=== PATIENT | male | born 1960 | race Caucasian/White ===

== ENCOUNTER → 2016-12-14 | Outpatient (CLI) | payer OTHER ==
--- NOTE | ~2016-12-14 | MR2 ---
[facility] A Service of [facility] RADIOLOGY TEXT RESULTS PATIENT: ABHIJIT DONALD LOCATION: [facility] : 56 UNIT #: [id number] AGE: [address]: Isabelle Love MD SEX: M ORDER DR: [id number] [place] [id number] O MR#: [id number] Acc #: [id number] NAME: ABHIJIT DONALD : 1960 SEX: M STUDY DATE/TIME: 12/14/2016 12:09 UNIT: [facility] ROOM: STUDY DESCRIPTION: MR Abdomen WWo Cont Attending Physician: Isabelle Love M.D. Referring Physician: Isabelle Love M.D. Ordering Physician: Isabelle Love M.D. Primary Care Physician: Matt Teran M.D. MRI CENTER REPORT This report is preliminary unless electronic signature is present. EXAM MRI abdomen with and without contrast, adrenal protocol INDICATIONS Indeterminate right adrenal lesion on previous CT. TECHNIQUE Multiplanar, multisequence MR imaging of the abdomen prior to and following 18 mL of MultiHance. Study was performed per adrenal protocol. COMPARISON CT lung cancer screening from 11/27/2016. FINDINGS ABDOMEN WITHOUT CONTRAST: There is a 2.8 cm right adrenal cyst. No other adrenal nodule. Study is not tailored for complete evaluation of the other abdominal organs. Visualized portions of the liver, spleen and included bowel loops are unremarkable. There are a few small cysts in both kidneys. There is complete fatty replacement of the pancreas. Previous cholecystectomy with [id number]-[id number]-moyadtdn prominence of the common duct, but no evidence for obstructing mass or stone on this study. ABDOMEN WITH CONTRAST: The right adrenal cyst shows no internal enhancement. There is no abnormal enhancement elsewhere in the abdomen. IMPRESSION 1. 2.8 cm benign right renal cyst. 2. Other incidental findings are detailed above. [facility] A Service [facility] RADIOLOGY TEXT RESULTS PAT[facility]: [facility]HIJIT DONALD [id number] 56 UNIT #: [id number] AGE: [address]: Isabelle Love MD SEX: M ORDER DR: Dictated by... Aden Gordon M.D. THIS IS AN ELECTRONICALLY VERIFIED REPORT Aden Gordon M.D. at 12/16/2016 2:31 PM EED/pcl TD: 12/15/2016 16:21 JOB #: [id number] MRI CENTER REPORT Page 1 of 1
== END | disposition home or self-care (01) ==
LOC: SMRI 11:13
DX: E27.8 Other specified disorders of adrenal gland (principal); R91.8 Other nonspecific abnormal finding of lung field; N28.1 Cyst of kidney, acquired
CPT/HCPCS: 74183; A9581